=== PATIENT | male | born 1995 | race African-American/Black ===

== ENCOUNTER 2022-03-22 10:54 | Emergency (ER) | payer OTHER ==
[~2022-03-22] VITALS: Ht 180.3 cm; Wt 62.1 kg
--- NOTE | 2022-03-22 11:10 | NUR ---
PT BED 2. NORMOTENSIVE. PLACED ON MONITOR.
--- NOTE | 2022-03-22 11:40 | NUR ---
XRAY AT BEDSIDE.
[2022-03-22] MEDS ORDERED: ETOMIDATE 2 MG/ML VIAL ONE (12:59)
[2022-03-22] MEDS: ETOMIDATE 2 MG/ML VIAL IV ONE (13:09)
[2022-03-22 14:18] VITALS: BP 148/100
== END 2022-03-22 14:18 | disposition home or self-care (01) ==
LOC: ER 11:00
DX: M24.411 Recurrent dislocation, right shoulder (principal); Z88.8 Allergy status to other drugs, medicaments and biological substances
CPT/HCPCS: 23650; 73030 ×2; 99152; 99285; J3490; J7030; G0500

== ENCOUNTER 2022-04-20 23:46 | Emergency (ER) | payer OTHER ==
[~2022-04-20] VITALS: Ht 180.3 cm; Wt 61.2 kg
[2022-04-21] MEDS ORDERED: PROPOFOL 20 ML IV ONE (00:47)
--- NOTE | 2022-04-21 00:51 | NUR ---
CONSENTS FOR SEDATION SIGNED.
--- NOTE | 2022-04-21 00:52 | NUR ---
IV LINE ESTABLISHED AT LEFT HAND 18G
--- NOTE | 2022-04-21 00:55 | NUR ---
0055:TIME OUT, Right Shoulder Reduction ER MD, 2 RN, RT AT BEDSIDE FOR CONCUSSION SEDATION VSS, 119/82, 18, 100 RA, 70 0059: IVP PROPOFOL 40MG 0100: IVP [id number] 0101: IVP PROPOFOL 20MG 0102: RIGHT SHOULDER REDUCED 0102: VSS
--- NOTE | 2022-04-21 01:15 | NUR ---
patient vss, a/o x 4, rr even and unlabored, no acute distress noted.
[2022-04-21 01:22] VITALS: BP 129/70
[2022-04-21] MEDS ORDERED: PROPOFOL 200 MG/20 ML VIAL IV ONE (01:30)
--- NOTE | 2022-04-21 01:31 | NUR ---
Patient discharged to home in stable condition. Written and verbal after care instructions given. Patient verbalizes understanding of instruction.IV removed. Catheter intact and site benign. Pressure and 4x4 applied to site. No bleeding noted. Pt ambulatory with a steady gait.
--- NOTE | 2022-04-21 01:31 | NUR ---
Paula torrez in ED - 04/21/22 at 0132 by SAKSHI Patient discharged to home in stable condition. Written and verbal after care instructions given. Patient verbalizes understanding of instruction.
== END 2022-04-21 01:35 | disposition home or self-care (01) ==
LOC: ER 04-21 00:01
DX: M24.411 Recurrent dislocation, right shoulder (principal); Z88.6 Allergy status to analgesic agent; Z60.2 Problems related to living alone
CPT/HCPCS: 99285; 23650; 99152; 73030 ×2; J2704; G0500

== ENCOUNTER 2022-12-16 03:40 | Emergency (ER) | payer MEDICAID, OTHER ==
[~2022-12-16] VITALS: Ht 180.3 cm; Wt 64.0 kg
--- NOTE | 2022-12-16 04:20 | NUR ---
BIBGIRLFRIEND FOR ATRAUMATIC R SHOULDER DISLOCATION. HX OF RECURRENT DISLOCATION. AWAKE AND ALERT X4 BREATHING UNLABORED. CHANGED INTO GOWN AND MD AT BEDSIDE.
[2022-12-16] MEDS ORDERED: PROPOFOL 20 ML IV ONE (04:39)
--- NOTE | 2022-12-16 04:40 | NUR ---
CONSENT FOR RIGHT SHOULDER REDUCTION SIGNED BY PATIENT AND PLACED IN PATIENT CHART
--- NOTE | 2022-12-16 04:47 | NUR ---
ER MD, RN, RT, AND EMT AT BEDSIDE FOR R SHOULDER REDUCTION. TIME OUT COMPLETED AT BEDSIDE.
--- NOTE | 2022-12-16 04:49 | NUR ---
60MG PROPOFOL ADMINSTERED IVP
--- NOTE | 2022-12-16 04:50 | NUR ---
20MG PROPOFOL ADMINSTERED IVP
--- NOTE | 2022-12-16 04:51 | NUR ---
R SHOULDER SUCCESSFULLY. XRAY ORDER PLACED FOR PLACEMENT CONFIRMATION.
--- NOTE | 2022-12-16 04:54 | NUR ---
PT AWAKE AND ALERTX4 BREATHING UNLABORED ON RA. DENIES ANY NASUEA OR ASSOSCIATED SIDE EFFECTS FROM SEDATION.
--- NOTE | 2022-12-16 05:08 | NUR ---
XRAY AT BEDSIDE
[2022-12-16] MEDS ORDERED: PROPOFOL 200 MG/20 ML VIAL IV ONE (05:30)
--- NOTE | 2022-12-16 05:48 | NUR ---
Patient discharged to home in stable condition. Written and verbal after care instructions given. Patient verbalizes understanding of instruction.IV removed. Catheter intact and site benign. Pressure and 4x4 applied to site. No bleeding noted.
[2022-12-16 05:49] VITALS: BP 124/78
== END 2022-12-16 05:49 | disposition home or self-care (01) ==
LOC: ER 03:41
DX: M24.411 Recurrent dislocation, right shoulder (principal); Z88.8 Allergy status to other drugs, medicaments and biological substances; Z60.2 Problems related to living alone
CPT/HCPCS: 99285; 23650; 99152; 73030 ×2; J2704; G0500